=== PATIENT | female | born 1955 | race Caucasian/White ===

== ENCOUNTER 2024-06-26 11:24 | Outpatient (CLI) | payer OTHER ==
[2024-06-26] MEDS ORDERED: Iopamidol 370 76% 100 ML VIAL ONE (15:46)
== END 2024-06-26 11:25 | disposition home or self-care (01) ==
LOC: BICCT 11:24
PROVIDERS: ATTEND Internal Medicine Cardiovascular Disease
DX: I73.9 Peripheral vascular disease, unspecified (principal); R59.0 Localized enlarged lymph nodes; I70.90 Unspecified atherosclerosis; I65.21 Occlusion and stenosis of right carotid artery
CPT/HCPCS: 36415; 70498; 82565; Q9967

== ENCOUNTER 2024-06-28 09:20 | Outpatient (CLI) | payer OTHER | END 2024-06-28 09:21 | disposition home or self-care (01) | LOC: BICMAMMO 09:20 | PROVIDERS: ATTEND Registered Nurse | DX: Z12.31 Encounter for screening mammogram for malignant neoplasm of breast (principal) | CPT/HCPCS: 77063; 77067 ==

== ENCOUNTER 2024-07-04 14:47 | Outpatient (CLI) | payer OTHER | END 2024-07-04 14:48 | disposition home or self-care (01) | LOC: BICCT 14:47 | PROVIDERS: ATTEND Internal Medicine Cardiovascular Disease | DX: R59.9 Enlarged lymph nodes, unspecified (principal) | CPT/HCPCS: 71260 ==

== ENCOUNTER 2024-07-05 11:30 | Outpatient (CLI) | payer OTHER ==
[2024-07-05 13:51] LABS: Anion Gap 11 mmol/L (10-20); BUN (Urea Nitrogen) 14 mg/dL (9.8-20.1); Calc. Creatinine Clearance 0 mL/min (70-130); Calcium 8.9 mg/dL (7.8-10.44); Carbon Dioxide 27 mmol/L (23-31); Chloride 104 mmol/L (98-107); Estimated GFR 69; Glucose 93 mg/dL (80-115); Potassium 4.9 mmol/L (3.5-5.1); Sodium 137 mmol/L (136-145)
[2024-07-05 14:10] LABS: Band 1 % (5-11); Burr Cells SLIGHT = 2-5 cells HPF (0-1); Eosinophils 25 % (0-10); Hematocrit 35.5 % (36.0-47.0); Hemoglobin 11.7 g/dL (12.0-16.0); Lymphocytes 22 % (21-51); Mean Corpuscular Hemoglobin 31.1 pg (27.0-31.0); Mean Corpuscular Volume 94.4 fL (78.0-98.0); Mean Platelet Volume 10.2 fL (7.4-10.4); Monocytes 6 % (0-10); Neutrophil 45 % (42-75); Ovalocytes SLIGHT = 2-5 cells HPF (0-1); Platelet Adequacy Comment Platelets Decreased; Platelet Count 134 10x3/uL (130-400); Polychromasia SLIGHT = 2-3 cells HPF (0-2); RBC Distribution Width 14.8 % (11.5-14.5); Red Blood Cell (RBC) Count 3.76 mill/uL (4.20-5.40); Smudge Cells 7.9 %
== END 2024-07-05 11:31 | disposition home or self-care (01) ==
LOC: LABBT 11:30
PROVIDERS: ATTEND Thoracic Surgery (Cardiothoracic Vascular Surgery)
DX: Z01.818 Encounter for other preprocedural examination (principal); I65.21 Occlusion and stenosis of right carotid artery
CPT/HCPCS: 80048; 85025; 93005; 93010

== ENCOUNTER 2024-07-05 13:30 | Inpatient (IN) | payer OTHER, MEDICAID ==
[2024-07-05 12:02] VITALS: BMI 30.2
[~2024-07-05 13:30] MED LIST: Glycopyrrolate 0.2 MG/ML 5 ML SYRINGE ONE
[2024-07-15] MEDS ORDERED: Protamine Sulfate 250 MG/25 ML VIAL ONE (06:35)
[2024-07-15] MEDS ORDERED: EPINEPHrine 1 MG/ML VIAL ONE (06:35)
[2024-07-15] MEDS ORDERED: Heparin 5,000 UNITS/ML VIAL ONE (06:35)
[2024-07-15] MEDS ORDERED: Bupivacaine PF 0.5% 30 ML VIAL ONE (06:36)
[2024-07-15] MEDS ORDERED: Lidocaine 1% MPF 2 ML VIAL ONE (06:45)
[2024-07-15] MEDS ORDERED: CEFAZOLIN 2 GM VIAL ONE (07:02)
[2024-07-15] MEDS ORDERED: Rocuronium Bromide 10 MG/ML (10ML VIAL) ONE (07:03)
[2024-07-15] MEDS ORDERED: PROPOFOL 20 ML ONE (07:03)
[2024-07-15] MEDS ORDERED: Lidocaine 1% PF 5 ML VIAL ONE (07:03)
[2024-07-15] MEDS ORDERED: fentaNYL PF 100 MCG/2 ML SYRINGE ONE (07:24)
[2024-07-15] MEDS ORDERED: Heparin 10,000 UNITS/ 10 ML VIAL ONE (07:39)
[2024-07-15] MEDS ORDERED: ePHEDrine Sulfate 50 MG/10 ML VIAL ONE ×2 (07:49→08:17)
[2024-07-15] MEDS ORDERED: PHENYLEPHRINE-NS 100 MCG/ML 10 ML SYRINGE ONE (07:50)
[2024-07-15] MEDS ORDERED: SUGAMMADEX SODIUM 200 MG/2 ML VIAL ONE (08:15)
[2024-07-15] MEDS ORDERED: Protamine Sulfate 50 MG/5 ML VIAL ONE (08:20)
[2024-07-15] MEDS ORDERED: hydrALAZINE 20 MG/ML VIAL SLOW IVP PRN (08:51)
[2024-07-15] MEDS ORDERED: Ondansetron PF 4 MG/2 ML Vial IVP PRN (08:51)
[2024-07-15] MEDS ORDERED: Insulin Regular, Human 100 UNIT/ML 10 ML VIAL SC PRN (08:51)
[2024-07-15] MEDS ORDERED: HYDROcodone/Acetaminophen 10/325 mg Tablet PO PRN (08:51)
[2024-07-15] MEDS ORDERED: Ipratropium/Albuterol 3 ML NEB NEB PRN (08:51)
[2024-07-15] MEDS ORDERED: Nitroglycerin 50 MG/250 ML BOT 250 ML IVPB PRN (08:51)
[2024-07-15] MEDS ORDERED: Acetaminophen 325 MG TAB PO PRN (08:51)
[2024-07-15] MEDS ORDERED: Phenylephrine 40 MG/NS 250 ML 250 ML IVPB PRN (08:51)
[2024-07-15] MEDS ORDERED: fentaNYL 50 mcg/mL 1 mL Vial SLOW IVP PRN (08:51)
[2024-07-15] MEDS ORDERED: Non-Formulary Item 1 EACH (Potassium Chloride [Potassium Chloride] 20 MEQ Tablet.Er) PO SCH (09:00)
[2024-07-15] MEDS ORDERED: Non-Formulary Item 1 EACH (Fluticasone/Umeclidin/Vilanter [Trelegy Ellipta 200-62.5-25] 1 IH SCH (09:00)
[2024-07-15] MEDS ORDERED: Non-Formulary Item 1 EACH (Pregabalin [Pregabalin] 200 MG Capsule) PO SCH (09:00)
[2024-07-15] MEDS ORDERED: DOXEPIN HCL 6 MG PO PRN (09:23)
[2024-07-15] MEDS: Sodium Chloride 0.9% 1,000 ML IV SCH (10:02)
[2024-07-15] MEDS: rOPINIRole HCl 1 MG TAB PO SCH (13:06)
[2024-07-15] MEDS: CEFAZOLIN 2 GM in Sodium Chloride 0.9% 100 ML IVPB SCH (18:17)
[2024-07-15] MEDS: Pregabalin 50 MG CAP PO SCH (18:17)
[2024-07-15] MEDS: HYDROcodone/Acetaminophen 10/325 mg Tablet PO PRN (18:43)
[2024-07-15] MEDS: traZODone HCl 150 MG TAB PO SCH (21:30)
[2024-07-15] MEDS: Atorvastatin Calcium 40 MG TAB PO SCH (21:38)
[2024-07-15] MEDS: Metoprolol Tartrate 50 MG TAB PO SCH (21:38)
[2024-07-15] MEDS: Ipratropium/Albuterol 3 ML NEB NEB SCH ×2 (22:24→22:27)
[2024-07-15] MEDS: Mometasone 100 MCG/PUFF (1 INHALER) INH SCH (22:28)
[2024-07-16 04:15] VITALS: TEMP 98.3
[2024-07-16] MEDS ORDERED: Non-Formulary Item 1 EACH (Esomeprazole Magnesium [Nexium] 40 MG Cap) PO SCH (08:00)
[2024-07-16] MEDS: DULoxetine 60 MG CAP PO SCH (08:02)
[2024-07-16] MEDS: Aspirin Chewable 81 MG TAB PO SCH (08:03)
[2024-07-16] MEDS: Potassium Chloride 20 MEQ TAB PO SCH (08:03)
[2024-07-16] MEDS: Pantoprazole 40 MG DR.TAB PO SCH (08:03)
[2024-07-16] MEDS: Clopidogrel Bisulfate 75 MG TAB PO SCH (08:03)
[2024-07-16] MEDS ORDERED: DOXEPIN HCL 6 MG PO PRN (08:37)
[2024-07-16] MEDS ORDERED: Non-Formulary Item 1 EACH (Metformin Hcl [Metformin Hcl] 1,000 MG Tablet) PO SCH (09:00)
[2024-07-16] MEDS: Insulin Glargine 30 UNITS/0.3 ML VIAL SC SCH (11:25)
[2024-07-16] MEDS: metFORMIN 500 MG TAB PO SCH (11:25)
== END 2024-07-16 12:20 | disposition home or self-care (01) | DRG 36 ==
LOC: SURG A 07-15 05:47 → CCU 07-15 17:52
PROVIDERS: ADMIT Thoracic Surgery (Cardiothoracic Vascular Surgery); ATTEND Thoracic Surgery (Cardiothoracic Vascular Surgery)
PROC: 037K3DZ Dilation of Right Internal Carotid Artery with Intraluminal Device, Percutaneous Approach (ICD-10-PCS; principal; 2024-07-15)
DX: I65.21 Occlusion and stenosis of right carotid artery (principal)
CPT/HCPCS: 36416; 94640; C1769; C1876; C1884; J0171; J0665; J1642; J1644; J1815; J2704; J2720; J7030; J7620